=== PATIENT | male | born 1960 | race Caucasian/White ===

== ENCOUNTER 2022-01-30 21:13 | Emergency (ER) | payer OTHER ==
[~2022-01-30] VITALS: Ht 195 cm; Wt 104.0 kg
[2022-01-30] MEDS ORDERED: ONDANSETRON 4 MG/2 ML (SDV) Z0FRAN IVP ONE (21:30)
[2022-01-30] MEDS ORDERED: LACTATED RINGERS 1,000 ML IV ONE (21:30)
[2022-01-30] MEDS ORDERED: TETANUS,DIPTH,PERTUSS P/F (BOOSTRIX) 0.5 ML VIAL IM ONE (21:30)
[2022-01-30 21:34] LABS: BASOPHILS # (AUTO) 0.1 10^3/uL (0.0-0.1); BASOPHILS % (AUTO) 1 % (0-10); EOSINOPHILS # (AUTO) 0.3 10^3/uL (0.0-0.3); EOSINOPHILS % (AUTO) 4 % (0-10); HEMATOCRIT 38 % (40-54); HEMOGLOBIN 13.2 g/dL (13.3-17.7); LYMPHOCYTES # (AUTO) 4.6 10^3/uL (1.0-4.0); LYMPHOCYTES % (AUTO) 58 % (12-44); MEAN CORPUSCULAR HEMOGLOBIN 33 pg (25-34); MEAN CORPUSCULAR HGB CONC 35 g/dL (32-36); MEAN CORPUSCULAR VOLUME 94 fL (80-99); MEAN PLATELET VOLUME 9.3 fL (9.0-12.2); MONOCYTES # (AUTO) 0.6 10^3/uL (0.0-1.0); MONOCYTES % (AUTO) 7 % (0-12); NEUTROPHILS # (AUTO) 2.4 10^3/uL (1.8-7.8); NEUTROPHILS % (AUTO) 31 % (42-75); PLATELET COUNT 262 10^3/uL (130-400)
[2022-01-30] MEDS ORDERED: IOHEXOL 350 MG/ML 100 ML (OMNIPAQUE 350) VIAL IV ONE (21:45)
[2022-01-30] MEDS ORDERED: HOLD METFORMIN - RECEIVED CONTRAST 20 ML VIAL IV SCH (21:45)
[2022-01-30] MEDS ORDERED: NS 100 ML (IVPB) BAG IV ONE (21:45)
[2022-01-30 21:48] LABS: ALBUMIN 3.7 GM/DL (3.2-4.5); POTASSIUM 3.8 MMOL/L (3.6-5.0)
--- NOTE | 2022-01-30 21:48 | ED Fall/Injury ---
General Chief Complaint: Trauma-Non Activation Stated Complaint: FALL Nursing Triage Note: PT TO ED W/ C/O NECK PAIN, LOC ONSET AFTER FALLING 2-3' FROM A PORCH. PER WITNESS ON SCENE, +LOC, ABRASIONS NOTED TO FOREHEAD. NO OTHER C/O VOICED. Source: patient (DOES NOT RECALL EVENT), EMS Exam Limitations: intoxication History of Present Illness Date Seen by Provider: Jan 30, 2022 Time Seen by Provider: 21:15 Initial Comments PT ARRIVES VIA EMS WITH CERVICAL COLLAR IN PLACE PT FELL 2-3' OFF A PORCH--FELL OVER THE PORCH RAILING AND LANDED HEAD/FACE FIRST ONTO THE GROUND FALL WAS WITNESSED BY MULTIPLE BYSTANDERS PT HAD LOSS OF CONSCIOUSNESS, THEN WOKE UP AFTER A MINUTE OR TWO, TRIED TO STAND UP AND GOT DIZZY AND PASSED OUT AGAIN, FOR A MINUTE OR TWO. PT STATES HE DOES REMEMBER FALLING, BUT THEN DOES NOT REMEMBER ANYTHING AFTER THAT, UNTIL HE GOT HERE. C/O NECK PAIN HAS ABRASIONS TO FOREHEAD AND NOSE. NO EPISTAXIS DENIES BACK PAIN NO PARESTHESIAS OR MOTOR DEFICITS NO EXTREMITY PAIN NO CHEST PAIN NO ABDOMINAL PAIN NO SHORTNESS OF BREATH NO NAUSEA/VOMITING NO VISION CHANGES NO DIZZINESS AT THIS TIME PT HAS BEEN DRINKING ALL DAY--BEER, DENIES ANY HARD LIQUOR OR WINE PT STATES HE DRINKS ON A REGULAR BASIS +SMOKING DENIES DRUG USE DENIES ANY MEDICAL PROBLEMS OR TAKE ANY MEDICATIONS DOES NOT TAKE ASPIRIN OR BLOOD THINNERS LAST TETANUS IS UNKNOWN PT IS HERE VISITING FROM [place], [place] Allergies and Home Medications Allergies Coded Allergies: No Allergy Information Available (Unverified , 01/30/22) Review of Systems Review of Systems Constitutional: see HPI, dizziness Eyes: No Symptoms Reported Ears, Nose, Mouth, Throat: see HPI Respiratory: no symptoms reported; No short of breath Cardiovascular: see HPI; No chest pain; syncope Gastrointestinal: no symptoms reported; No abdominal pain, No nausea, No vomiting Genitourinary: no symptoms reported Musculoskeletal: see HPI Skin: see HPI Psychiatric/Neurological: See HPI Past Ahwxxjp-Vzzwjr-Oabqwz Hx Patient Social History Tobacco Use?: Yes Tobacco type used: Cigarettes Smoking Status: Current Everyday Smoker Use of E-Cig and/or Vaping dev: No Substance use?: No Alcohol Use?: Yes Alcohol type: Beer Alcohol Frequency: Couple times a week Pt feels they are or have been: No Past Medical History Surgery/Hospitalization HX: RT KNEE SURGERY Surgeries: Yes (RIGHT KNEE SURGERY) Orthopedic Respiratory: No Cardiac: No Neurological: No Genitourinary: No Gastrointestinal: No Musculoskeletal: Yes (RIGHT KNEE SURGERY) Endocrine: No HEENT: No Cancer: No Psychosocial: No Integumentary: No Blood Disorders: No Physical Exam Vital Signs Vital Signs - First Documented 01/31/22 01:00 O2 Flow Rate 2.00 Capillary Refill : Height, Weight, BMI Height: '" Weight: lbs. oz. kg; 27.00 BMI Method: General Appearance: WD/WN, no apparent distress, other (SPEECH SLURRED, APPEARS INTOXICATED AND REEKS OF ALCOHOL, BUT IS VERY PLEASANT AND COOPERATIVE AT THIS TIME) HEENT: PERRL/EOMI, other (TM'S CLEAR. ABRASIONS TO NOSE AND FORHEAD. NO MAXILLARY OR MANDIBULAR TENDERNESS. NO DENTAL OR MOUTH INJURY. NO EPISTAXIS. NO PERIORBITAL HEMATOMA. ) Neck: other (IN CERVICAL COLLAR ON ARRIVAL) Cardiovascular: normal peripheral pulses, regular rate, rhythm, no murmur Respiratory: chest non-tender, normal breath sounds, no respiratory distress, no accessory muscle use Peripheral Pulses: 2+ Dorsalis Pedis (R), 2+ Left Dors-Pedis (L), 2+ Radial Pulses (R), 2+ Radial Pulses (L) Gastrointestinal: normal bowel sounds, non tender, soft, no organomegaly Back: no CVA tenderness, vertebral tenderness (UPPER THORACIC AND TRAPEZIUS MUSCLE AREA TENDERNESS. MILD LUMBAR TENDERNESS. 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, no motor/sensory deficits, alert, normal mood/affect, oriented x 3 (BUT NO RECOLLECTION OF EVENT) Skin: normal color, warm/dry [place] Coma Score Best Eye Response: (4) Open Spontaneously Best Verbal Response: (5) Oriented Best Motor Response: (6) Obeys Commands [place] Total: 15 Progress/Results/Core Measures Results/Orders Lab Results Laboratory Tests Test 01/30/22 21:23 01/31/22 01:29 Range/Units White Blood Count 8.0 4.3-11.0 10^3/uL Red Blood Count 4.03 L 4.30-5.52 10^6/uL Hemoglobin 13.2 L 13.3-17.7 g/dL Hematocrit 38 L 40-54 % Mean Corpuscular Volume 94 80-99 fL Mean Corpuscular Hemoglobin 33 25-34 pg Mean Corpuscular Hemoglobin Concent 35 32-36 g/dL Red Cell Distribution Width 11.5 10.0-14.5 % Platelet Count 262 130-400 10^3/uL Mean Platelet Volume 9.3 9.0-12.2 fL Immature Granulocyte % (Auto) 0 % Neutrophils (%) (Auto) 31 L 42-75 % Lymphocytes (%) (Auto) 58 H 12-44 % Monocytes (%) (Auto) 7 0-12 % Eosinophils (%) (Auto) 4 0-10 % Basophils (%) (Auto) 1 0-10 % Neutrophils # (Auto) 2.4 1.8-7.8 10^3/uL Lymphocytes # (Auto) 4.6 H 1.0-4.0 10^3/uL Monocytes # (Auto) 0.6 0.0-1.0 10^3/uL Eosinophils # (Auto) 0.3 0.0-0.3 10^3/uL Basophils # (Auto) 0.1 0.0-0.1 10^3/uL Immature Granulocyte # (Auto) 0.0 0.0-0.1 10^3/uL Sodium Level 132 L 135-145 MMOL/L Potassium Level 3.8 3.6-5.0 MMOL/L Chloride Level 101 98-107 MMOL/L Carbon Dioxide Level 17 L 21-32 MMOL/L Anion Gap 14 5-14 MMOL/L Blood Urea Nitrogen 13 7-18 MG/DL Creatinine 1.19 0.60-1.30 MG/DL Estimat Glomerular Filtration Rate 70 BUN/Creatinine Ratio 11 Glucose Level 97 70-105 MG/DL Calcium Level 8.3 L 8.5-10.1 MG/DL Corrected Calcium 8.5 8.5-10.1 MG/DL Magnesium Level 1.9 1.6-2.4 MG/DL Total Bilirubin 0.4 0.1-1.0 MG/DL Aspartate Amino Transf (AST/SGOT) 26 5-34 U/L Alanine Aminotransferase (ALT/SGPT) 26 0-55 U/L Alkaline Phosphatase 56 40-136 U/L Total Protein 6.4 6.4-8.2 GM/DL Albumin 3.7 3.2-4.5 GM/DL Serum Alcohol 279 H <10 MG/DL Urine Color YELLOW Urine Clarity CLEAR Urine pH 5.5 5-9 Urine Specific [place] <=1.005 1.016-1.022 Urine Protein NEGATIVE NEGATIVE Urine Glucose (UA) NEGATIVE NEGATIVE Urine Ketones NEGATIVE NEGATIVE Urine Nitrite NEGATIVE NEGATIVE Urine Bilirubin NEGATIVE NEGATIVE Urine Urobilinogen 0.2 < = 1.0 MG/DL Urine Leukocyte Esterase NEGATIVE NEGATIVE Urine RBC (Auto) NEGATIVE NEGATIVE Urine RBC NONE /HPF Urine WBC NONE /HPF Urine Crystals NONE /LPF Urine Bacteria NEGATIVE /HPF Urine Casts NONE /LPF Urine Mucus NEGATIVE /LPF Urine Culture Indicated NO Urine Opiates Screen NEGATIVE NEGATIVE Urine Oxycodone Screen NEGATIVE NEGATIVE Urine Methadone Screen NEGATIVE NEGATIVE Urine Propoxyphene Screen NEGATIVE NEGATIVE Urine Barbiturates Screen NEGATIVE NEGATIVE Ur Tricyclic Antidepressants Screen NEGATIVE NEGATIVE Urine Phencyclidine Screen NEGATIVE NEGATIVE Urine Amphetamines Screen NEGATIVE NEGATIVE Urine Methamphetamines Screen NEGATIVE NEGATIVE Urine Benzodiazepines Screen NEGATIVE NEGATIVE Urine Cocaine Screen NEGATIVE NEGATIVE Urine Cannabinoids Screen NEGATIVE NEGATIVE My Orders Orders - TIFFANY KEY DO Ed Iv/Invasive Line Start (01/30/22 21:18) Ekg Tracing (01/30/22 21:18) O2 (01/30/22 21:18) Monitor-Rhythm Ecg Trace Only (01/30/22 21:18) Ct Head/Face/Cervical Wo (01/30/22 21:18) Ct Thoracic/Lumbar Spine Wo (01/30/22 21:18) Chest 1 View, Ap/Pa Only (01/30/22 21:18) Pelvis 1 To 2 Views (01/30/22 21:18) Alcohol (01/30/22 21:18) Cbc With Automated Diff (01/30/22 21:18) Comprehensive Metabolic Panel (01/30/22 21:18) Drug Screen Stat (Urine) (01/30/22 21:18) Magnesium (01/30/22 21:18) Ua Culture If Indicated (01/30/22 21:18) Ed Iv/Invasive Line Start (01/30/22 21:18) Ct Chest/Abdomen/Pelvis W (01/30/22 21:18) Ed Iv/Invasive Line Start (01/30/22 21:18) Lactated Ringers (Lr 1000 Ml Iv Solution (01/30/22 21:30) Ondansetron Injection (Zofran Injectio (01/30/22 21:30) Dipht,Pertuss(Acell),Tet Adult (Boostrix (01/30/22 21:30) Iohexol Injection (Omnipaque 350 Mg/Ml 1 (01/30/22 21:45) Di Iv Start (Assessment) .IV start (01/30/22 21:33) Received Contrast (Hold Metformin- Contr (01/30/22 21:45) Ns (Ivpb) (Sodium Chloride 0.9% Ivpb Bag (01/30/22 21:45) Fentanyl Inj (Sublimaze Injection) (01/30/22 23:09) Fentanyl Inj (Sublimaze Injection) (01/31/22 00:55) Fentanyl Inj (Sublimaze Injection) (01/31/22 04:19) Medications Given in ED Current Medications Medications Dose Ordered Sig/Yoav Route Start Time Stop Time Status Last Admin Dose Admin Diphtheria/ Tetanus/Acell Pertussis 0.5 ml ONCE ONCE IM 01/30/22 21:30 01/30/22 21:31 DC 01/30/22 22:07 0.5 ML Iohexol 100 ml ONCE ONCE IV 01/30/22 21:45 01/30/22 21:46 DC 01/30/22 21:36 100 ML Lactated Ringer's 1,000 ml @ 0 mls/hr Q0M ONCE IV 01/30/22 21:30 01/30/22 21:31 DC 01/30/22 22:08 0 MLS/HR Ondansetron HCl 4 mg ONCE ONCE IVP 01/30/22 21:30 01/30/22 21:31 DC 01/30/22 22:11 4 MG Sodium Chloride 100 ml ONCE ONCE IV 01/30/22 21:45 01/30/22 21:46 DC 01/30/22 21:36 100 ML Vital Signs/I&O 01/30/22 01/30/22 01/31/22 01/31/22 21:14 21:14 01:00 04:34 Temp 36.7 Pulse 61 61 Resp 16 16 B/P (MAP) 77/55 (62) 77/55 (62) Pulse Ox 94 94 95 95 O2 Delivery Room Air Room Air Nasal Cannula Nasal Cannula O2 Flow Rate 2.00 4.00 2 Blood Pressure Mean: 62 Progress Progress Note : Progress Note PT REMAINED IN CERVICAL COLLAR AND LAID FLAT FOR ER STAY GIVEN: -IV FLUIDS -DPT VACCINE -FENTANYL FOR PAIN -ZOFRAN 0630--PT JUST GOT OUT OF BED, REMOVED MONITOR DEVICES AND URINATED ALL OVER THE FLOOR--PT HAS USED CALL LIGHT AND URINAL WHILE LAYING IN BED THROUGHOUT THE NIGHT UNTIL NOW, AND HIS CALL LIGHT WAS IN REACH. PT IS NEUROLOGICALLY INTACT, AND PLACED BACK ON ER CART AND HOOKED BACK UP TO MONITORING DEVICES. PT REMINDED TO USE CALL LIGHT AND THAT HE HAS TO REMAIN FLAT ON ER CART NO DETERIORATION IN PT'S CONDITION DURING ER STAY Initial ECG Impression Date: Jan 30, 2022 Initial ECG Impression Time: 22:03 Initial ECG Rate: 63 Initial ECG Rhythm: Normal Sinus Initial ECG Comparisson: No Previous ECG Available Diagnostic Imaging Comments ALL PER RADIOLOGIST REPORTS AT 2249: CXR-- FINDINGS: The cardiomediastinal silhouette is unremarkable. The pulmonary vasculature is within normal limits. The lungs and pleural spaces are clear. IMPRESSION: No evidence of an acute cardiopulmonary process. PELVIS-- FINDINGS: There is no evidence for an acute fracture or dislocation. The joint spaces are well maintained. There is no significant soft tissue swelling. IMPRESSION: No acute process. CT HEAD/MAXILLOFACIALS/CERVICAL SPINE--FINDINGS: Brain: There is no acute hemorrhage or infarct. No mass, mass effect or midline shift. No hydrocephalus. The calvarium is intact with the paranasal sinuses and mastoid air cells clear IMPRESSION: 1. Negative head CT. CT CERVICAL SPINE: There is a small osseous fragment along the anterior inferior endplate at C3 which has a likely acute process in appearance. MRI could evaluate for edema. Other osseous fragments throughout the anterior aspect of the mid and lower cervical spine have a more chronic appearance. There are no significant subluxations. No compression deformities. No other acute fractures identified. Multilevel diffuse bilateral facet hypertrophy noted. The prevertebral soft tissues appear unremarkable. Lung apices clear. IMPRESSION: 1. Possible acute fracture along the anterior inferior endplate at C3. Remaining findings appear degenerative. MRI recommended to evaluate for edema. CT MAXILLOFACIAL: No fractures appreciated. Mild mucosal thickening noted in the sinuses with no air-fluid levels appreciated. Orbits intact. Temporomandibular joints intact. IMPRESSION: No acute process in the maxillofacial bones. CT THORACIC/LUMBAR SPINE-- FINDINGS: There is a questionable nondisplaced fracture of the anterior right 1st rib, correlate for point tenderness. No compression deformities or subluxations appreciated. There are no acute fractures in the thoracic spine. Within the lungs, there is evidence of old granulomatous disease and scattered bibasilar atelectasis. Within the lumbar spine there is normal height of the vertebral bodies with no compression deformities appreciated. There are bilateral pars defects at L3 with grade 1 anterolisthesis at L3-L4. Bilateral pars defects also noted at L2 without significant listhesis. There is mild irregularity along the left transverse process at L2 which could represent fracture, correlate for point tenderness. Diffuse multilevel degenerative findings noted. There is a large cystic lesion in the right kidney. IMPRESSION: 1. No acute fracture within the thoracic spine with degenerative findings noted. 2. Motion artifact versus a nondisplaced fracture of the anterior right 1st rib correlate for point tenderness. 3. Bilateral age-indeterminate pars defects at L2 and L3 with grade 1 anterolisthesis of L3 on L4. No compression fractures appreciated. Other incidental findings as detailed above including a possible nondisplaced left transverse process fracture at L2. CT CHEST/ABDOMEN/PELVIS-- FINDINGS: There is no pericardial or pleural effusion. Mediastinal structures appear intact, no adenopathy. Within the lungs there is bibasilar dependent atelectasis with evidence of old granulomatous disease. There is no pneumothorax. Questionable nondisplaced fracture of the right anterior 1st rib is noted, correlate for point tenderness. CT abdomen and pelvis: There is hepatic steatosis. Gallbladder and spleen unremarkable for acute abnormality. Pancreas and adrenal glands unremarkable. Large simple appearing cyst noted in the right kidney. Kidneys otherwise unremarkable. There is no free fluid or air. There are fat-containing inguinal hernias right greater than left. Appendix normal. No acute process seen within the pelvis. IMPRESSION: 1. Bibasilar dependent atelectasis in the lungs with evidence of old granulomatous disease. 2. Possible nondisplaced anterior right 1st rib fracture, correlate for point tenderness. 3. Incidental findings throughout the abdomen and pelvis with no posttraumatic sequela within the intra-abdominal or intrapelvic structures. Reviewed: Reviewed by [facility] Departure Communication (Admissions) 0601--CALLED [facility] ( PT PREFERENCE, HE LIVES IN [place] ) --THEY WILL CALL BACK [id number]--[facility] CALLED BACK, DR. DWAINE ORTIZ, TRAUMA SURGEON, ACCEPTS PT FOR ADMIT/TRANSFER. THEY WILL CALL BACK WITH BED ASSIGNMENT. - [facility] TRANSPORT SERVICES ARE BEING CONTACTED FOR TRANSFER 1--[facility] CALLED, STILL WAITING FOR BED ASSIGNMENT. 0001--MULTIPLE AIR TRANSPORT SERVICES HAVE BEEN CONTACTED AND NONE ARE ABLE TO TRANSPORT DUE TO WEATHER IN . [facility] HAS ALSO BEEN CONTACTED AND THEY WILL NOT BE ABLE TO TAKE ANY TRANSFERS UNTIL AFTER 0800 0015--MULTIPLE LOCAL [facility]OUND EMS SERVICES HAVE BEEN CONTACTED, AND NONE ARE AVAILABLE FOR TRANSPORT. 0023--[facility] CALLED BACK WITH BED ASSIGNMENT. [facility] UPDATED THROUGHOUT THE NIGHT ABOUT TRANSPORT ISSUES. STILL VERY BAD WEATHER IN AREA AND NO AIR TRANSPORT IS AVAILABLE 0600--ER STAFF WILL START CALLING AGAIN TO TRY TO ARRANGE FOR TRANSFER. 0700--CARE TURNED OVER TO DR. ALLISON, TRANSFER STILL PENDING AT THIS TIME. AIR SERVICES HAVE BEEN CONTACTED AND NONE ARE FLYING, DUE TO CONTINUED BAD WEATHER IN [place]. [facility] BEING CONTACTED AGAIN FOR TRANSPORT OF PT AT THEIR SHIFT CHANGE AT 0800. Impression Primary Impression: FALL FROM PORCH Additional Impressions: Closed head injury with brief loss of consciousness C3 cervical fracture L2 TRANSVERSE PROCESS FRACTURE RIGHT FIRST RIB FRACTURE Alcohol intoxication Disposition: 02 XFER SHT-TRM HOSP Condition: Stable Transfer Transfer Reason: Exceeds level of care (NEED FOR TRAUMA SPECIALTY SERVICES UNAVAILABLE HERE/SPINE SURGERY) Transfer Facility: [facility], TIFFANY WOLF DO Jan 30, 2022 21:48
[2022-01-30 21:49] LABS: CALCIUM 8.3 MG/DL (8.5-10.1)
[2022-01-30 21:50] LABS: TOTAL PROTEIN 6.4 GM/DL (6.4-8.2)
[2022-01-30 21:52] LABS: BILIRUBIN,TOTAL 0.4 MG/DL (0.1-1.0)
[2022-01-30 21:54] LABS: CREATININE SERUM 1.19 MG/DL (0.60-1.30)
[2022-01-30 21:57] LABS: MAGNESIUM 1.9 MG/DL (1.6-2.4)
--- NOTE | 2022-01-30 22:10 | Diagnostic Imaging Report ---
PROCEDURE: CT thoracic and lumbar spine without contrast. TECHNIQUE: Multiple contiguous axial images were obtained through the thoracic and lumbar spine without the use of intravenous contrast. Sagittal and coronal reformations were then performed. All CT scans use one or more of the following dose optimizing techniques: automated exposure control, MA and/or KvP adjustment based on a patient size and exam type, or iterative reconstruction. INDICATION: Fall, pain CT thoracic and lumbar spine from 01/30/2022. FINDINGS: There is a questionable nondisplaced fracture of the anterior right 1st rib, correlate for point tenderness. No compression deformities or subluxations appreciated. There are no acute fractures in the thoracic spine. Within the lungs, there is evidence of old granulomatous disease and scattered bibasilar atelectasis. Within the lumbar spine there is normal height of the vertebral bodies with no compression deformities appreciated. There are bilateral pars defects at L3 with grade 1 anterolisthesis at L3-L4. Bilateral pars defects also noted at L2 without significant listhesis. There is mild irregularity along the left transverse process at L2 which could represent fracture, correlate for point tenderness. Diffuse multilevel degenerative findings noted. There is a large cystic lesion in the right kidney. IMPRESSION: 1. No acute fracture within the thoracic spine with degenerative findings noted. 2. Motion artifact versus a nondisplaced fracture of the anterior right 1st rib correlate for point tenderness. 3. Bilateral age-indeterminate pars defects at L2 and L3 with grade 1 anterolisthesis of L3 on L4. No compression fractures appreciated. Other incidental findings as detailed above including a possible nondisplaced left transverse process fracture at L2. Dictated by: Dictated on workstation # [id number]
--- NOTE | 2022-01-30 22:15 | Diagnostic Imaging Report ---
PROCEDURE: CT chest, abdomen, and pelvis with contrast. TECHNIQUE: Multiple contiguous axial images were obtained through the chest, abdomen, and pelvis after the administration of intravenous contrast. Auto Exposure Controls were utilized during the CT exam to meet ALARA standards for radiation dose reduction. INDICATION: Fall, pain EXAMINATION:: CT chest, abdomen and pelvis with contrast 01/30/2022. FINDINGS: There is no pericardial or pleural effusion. Mediastinal structures appear intact, no adenopathy. Within the lungs there is bibasilar dependent atelectasis with evidence of old granulomatous disease. There is no pneumothorax. Questionable nondisplaced fracture of the right anterior 1st rib is noted, correlate for point tenderness. CT abdomen and pelvis: There is hepatic steatosis. Gallbladder and spleen unremarkable for acute abnormality. Pancreas and adrenal glands unremarkable. Large simple appearing cyst noted in the right kidney. Kidneys otherwise unremarkable. There is no free fluid or air. There are fat-containing inguinal hernias right greater than left. Appendix normal. No acute process seen within the pelvis. IMPRESSION: 1. Bibasilar dependent atelectasis in the lungs with evidence of old granulomatous disease. 2. Possible nondisplaced anterior right 1st rib fracture, correlate for point tenderness. 3. Incidental findings throughout the abdomen and pelvis with no posttraumatic sequela within the intra-abdominal or intrapelvic structures. Dictated by: Dictated on workstation # [id number]
--- NOTE | 2022-01-30 22:16 | Diagnostic Imaging Report ---
INDICATION: Trauma, pain EXAMINATION: Chest 01/30/2022. 2 views of the chest FINDINGS: The cardiomediastinal silhouette is unremarkable. The pulmonary vasculature is within normal limits. The lungs and pleural spaces are clear. IMPRESSION: No evidence of an acute cardiopulmonary process. Dictated by: Dictated on workstation # [id number]
--- NOTE | 2022-01-30 22:46 | Diagnostic Imaging Report ---
PROCEDURE: CT head, face, and cervical spine without contrast. TECHNIQUE: Multiple contiguous axial images were obtained through the head, neck, and facial bones without the use of intravenous contrast. Sagittal and coronal reformations through the cervical spine and facial bones were also performed. Auto Exposure Controls were utilized during the CT exam to meet ALARA standards for radiation dose reduction. INDICATION: Trauma, pain EXAMINATION: CT brain, CT maxillofacial, CT cervical spine 01/30/2022 FINDINGS: Brain: There is no acute hemorrhage or infarct. No mass, mass effect or midline shift. No hydrocephalus. The calvarium is intact with the paranasal sinuses and mastoid air cells clear IMPRESSION: 1. Negative head CT. CT CERVICAL SPINE: There is a small osseous fragment along the anterior inferior endplate at C3 which has a likely acute process in appearance. MRI could evaluate for edema. Other osseous fragments throughout the anterior aspect of the mid and lower cervical spine have a more chronic appearance. There are no significant subluxations. No compression deformities. No other acute fractures identified. Multilevel diffuse bilateral facet hypertrophy noted. The prevertebral soft tissues appear unremarkable. Lung apices clear. IMPRESSION: 1. Possible acute fracture along the anterior inferior endplate at C3. Remaining findings appear degenerative. MRI recommended to evaluate for edema. CT MAXILLOFACIAL: No fractures appreciated. Mild mucosal thickening noted in the sinuses with no air-fluid levels appreciated. Orbits intact. Temporomandibular joints intact. IMPRESSION: No acute process in the maxillofacial bones. Dictated by: Dictated on workstation # [id number]
--- NOTE | 2022-01-30 22:48 | Diagnostic Imaging Report ---
INDICATION: Trauma, pain. EXAMINATION: Pelvis 01/30/2022 FINDINGS: There is no evidence for an acute fracture or dislocation. The joint spaces are well maintained. There is no significant soft tissue swelling. IMPRESSION: No acute process. Dictated by: Dictated on workstation # [id number]
[2022-01-30] MEDS ORDERED: fentaNYL INJ 100 MCG/2 ML AMP IVP STA (23:09)
[2022-01-31] MEDS ORDERED: fentaNYL INJ 100 MCG/2 ML AMP IVP STA ×2 (00:55→07:25)
[2022-01-31 01:42] LABS: BACTERIA,URINE NEGATIVE /HPF; BILIRUBIN,URINE NEGATIVE (NEGATIVE); CLARITY,URINE CLEAR; COLOR,URINE YELLOW; GLUCOSE, URINE (UA) NEGATIVE (NEGATIVE); KETONES,URINE NEGATIVE (NEGATIVE); LEUKOCYTE ESTERASE ,URINE NEGATIVE (NEGATIVE); NITRITE,URINE NEGATIVE (NEGATIVE); PH,URINE 5.5 (5-9); PROTEIN,URINE NEGATIVE (NEGATIVE)
[2022-01-31 01:47] LABS: AMPHETAMINE SCREEN, URINE NEGATIVE (NEGATIVE); BARBITURATE SCREEN URINE NEGATIVE (NEGATIVE); BENZODIAZEPINES SCREEN URINE NEGATIVE (NEGATIVE); CANNABINOID SCREEN, URINE NEGATIVE (NEGATIVE); COCAINE SCREEN URINE NEGATIVE (NEGATIVE); METHADONE STAT NEGATIVE (NEGATIVE); OPIATE SCREEN URINE NEGATIVE (NEGATIVE); OXYCODONE STAT NEGATIVE (NEGATIVE); PROPOXYPHENE STAT NEGATIVE (NEGATIVE); TRICYCLIC ANTIDEPRESSANTS SCRE NEGATIVE (NEGATIVE)
[2022-01-31] MEDS ORDERED: fentaNYL INJ 100 MCG/2 ML AMP ONE (04:19)
[2022-01-31 09:05] VITALS: BP 147/81
== END 2022-01-31 09:04 | disposition short-term general hospital (02) ==
LOC: ER 21:19
DX: S12.200A Unspecified displaced fracture of third cervical vertebra, initial encounter for closed fracture (principal); S32.029A Unspecified fracture of second lumbar vertebra, initial encounter for closed fracture; S22.31XA Fracture of one rib, right side, initial encounter for closed fracture; S06.9X9A Unspecified intracranial injury with loss of consciousness of unspecified duration, initial encounter; F10.129 Alcohol abuse with intoxication, unspecified; F17.210 Nicotine dependence, cigarettes, uncomplicated; Z23 Encounter for immunization; W13.0XXA Fall from, out of or through balcony, initial encounter
CPT/HCPCS: 70450; 70486; 71045; 71260; 72125; 72128; 72131; 72170; 74177; 80053; 80306; 81000; 83735; 85025; 93005; 93041; 99285; G0480; 36415; 80320; 90715